=== PATIENT | female | born 1995 | race Caucasian/White ===

== ENCOUNTER 2017-12-30 12:22 | Emergency (ER) | END 2017-12-30 14:29 | disposition home or self-care (01) ==

== ENCOUNTER 2018-09-12 20:11 | Emergency (ER) | payer SELFPAY ==
[~2018-09-12] VITALS: Ht 160 cm; Wt 54.8 kg
[~2018-09-12 20:11] MED LIST: AMOX1TAB10 PO; CYCL10TA7 PO; HYDR-906 PO; HYDR5TAB PO; IBUP-1561 PO; PSEU120T12 PO
[2018-09-12 20:52] VITALS: BP 138/64; PULSE 75; RESP 18; Ht 160 cm; Wt 54.8 kg
== END 2018-09-13 02:15 | disposition left against medical advice (07) ==
LOC: FTE 20:11
DX: Z53.21 Procedure and treatment not carried out due to patient leaving prior to being seen by health care provider (principal)